=== PATIENT | female | born 1980 | race Hispanic/Latino ===

== ENCOUNTER 2021-08-28 08:55 | Outpatient (CLI) | payer OTHER | END 2021-08-28 08:56 | disposition home or self-care (01) | LOC: BICULT 08:55 | PROVIDERS: ATTEND Internal Medicine Gastroenterology | DX: K80.20 Calculus of gallbladder without cholecystitis without obstruction (principal); R10.12 Left upper quadrant pain | CPT/HCPCS: 76705 ==